=== PATIENT | female | born 1980 | race Caucasian/White ===

== ENCOUNTER 2023-12-18 08:45 | Outpatient (AMB) | payer BC, SELFPAY ==
--- NOTE | 2023-12-18 08:49 | MHC.PC.OV ---
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 Discussing today if she should go back on cholesterol medication. 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 She is transferring from [facility]. No notes available today. CV: Blood pressure today in the office is 98/60. She denies any episodes of feeling dizzy. Prior to leaving [facility] had increased her lisinopril from 10 mg to 20 she states that over the last few months she has significantly changed her diet. She states that she did a cleanse in his now eating very healthy and non processed foods. She states that she is also exercising and walking twice a day. Her is as motivated as she is and she states together they are both slowly losing weight. Denies any chest pain, shortness on breath. Sleep study is scheduled next month. Breast: March 02 mammo is scheduled for the repeat mammo. Left breast mammogram and u/s was abnormal nodular density in Jul 2023. Following with breast center [facility]: follows with Dr. Oscar paez's group. Starting pelvic floor PT this summer. Sees Dr. Davis routinely. 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 1. Little interest or pleasure in doing things: not at all 2. Feeling down, depressed, or hopeless: not at all 3. Trouble falling or staying asleep, or sleeping too much: not at all 4. Feeling tired or having little energy: several days 5. Poor appetite or overeating: not at all 6. Feeling bad about yourself - or that you are a failure or have let yourself or your family down: not at all 7. Trouble concentrating on things, such as reading the newspaper or watching television: not at all 8. Moving or speaking so slowly that other people could have noticed. Or the opposite - being so fidgety or restless that you have been moving around a lot more than usual: not at all 9. Thoughts that you would be better off or of hurting yourself in some way: not at all Total score: 1 Depression Screening Interpretation: Negative Depression Screening Done: Yes 05282 - PHQ-9 Billing: Yes Source: Developed by Drs. Leroy Unger, Briana Cope, Alberto Gonzalez and colleagues, with an educational hiram from [employer]. Thrive Questionnaire I am a: Patient What is your living situation today?: I have a steady place to live Within the past 12 months, did the food you bought not last and you didn't have the money to get more?: Never true Within the past 12 months, did you worry whether your food would run out before you got money to buy more?: Never true Do you have trouble paying for medicines?: No Do you have trouble getting transportation to medical appointments?: No Do you have trouble paying your heating and electricity bill?: No Do you have trouble taking care of your child, family member or friend?: No Do you have trouble with day-to-day activities such as bathing, preparing meals, shopping, managing finances, etc.?: No Are you currently unemployed and looking for a job?: No Are you interested in more education?: No Please select the resources that you would like help with: None Currently or been in a relationship where the following occur: no concerns reported THRIVE Score: 0 AUDIT C Alcohol Use Questionnaire (AUDIT-C) 1. How often do you have a drink containing alcohol?: 2-3 times a week 2. How many drinks containing alcohol do you have on a typical day when you are drinking?: 1 or 2 3. How often do you have six or more drinks on one occasion?: Monthly Total Score: 5 Score Reviewed/Action Taken: Yes JAMIE-7 AMB Questionnaire JAMIE-7 Feeling nervous, anxious, or on edge: 0 = Not at all Not being able to stop or control worryin = Not at all Worrying too much about different things: 0 = Not at all Trouble relaxin = Not at all Being so restless that it is hard to sit still: 0 = Not at all Becoming easily annoyed or irritable: 0 = Not at all Feeling afraid as if something awful might happen: 0 = Not at all Total JAMIE-7 score (0-4 normal; 5-9 mild; 10-14 moderate; 15-21 severe): 0 Source: Developed by Drs. Leroy Unger, Briana Cope, Alberto Gonzalez and colleagues, with an educational hiram from [employer]. JAMIE-7 Assessment Billing JAMIE-7 Assessment Tool: JAMIE-7 Assessment 39206 Physical exam (Primary Care) Vital Signs: Last Vital Signs Temp 98.2 F 12/18/23 08:55 Pulse 87 12/18/23 08:55 Resp 14 12/18/23 08:55 BP 98/78 12/18/23 08:55 Pulse Ox 99 12/18/23 08:55 Oxygen Delivery Method Room Air 12/18/23 08:55 BMI result Body Mass Index 29.0 Tobacco/Smoking Status: Tobacco use Status Tobacco use date assessed 12/18/23 12/18/23 08:58 Patient Tobacco Use Status Never used Tobacco 12/18/23 08:58 e-Cigarette/Vaping Use Never Used 12/18/23 08:58 Depression Screening Interpretation: Negative Currently or been in a relationship where the following occur: no concerns reported Const Orientation/consciousness: patient oriented x3 HENMT Ears: hearing grossly normal bilaterally Neck Thyroid: Thyroid normal Lymphatic: no lymphadenopathy noted Resp Auscultation: clear to auscultation bilaterally Cardio Rate: regular rate Rhythm: regular rhythm Heart sounds: S1 normal heart sound present and S2 normal heart sound present GI Inspection: Yes normal to inspection Palpation (GI): Soft to palpation and Other GI palpation findings present (nontender, no cva tenderness) Auscultation: normoactive bowel sounds Rectal Exam - Female: deferred Skin General skin exam: no rashes or lesions noted Neuro General: patient oriented x3, gait normal and no focal motor deficits Assessment and Plan Assessment & Plan (1) Hypertension: Code(s): I10 - Essential (primary) hypertension Qualifiers: Hypertension type: primary hypertension Qualified Code(s): I10 - Essential (primary) hypertension Plan: We will reduce lisinopril to 10 mg. She will monitor her blood pressure at home. I will have her follow up in 6 months for a CPE. Sooner if needed. We will complete labs prior to appointment. (2) Dyslipidemia: Code(s): E78.5 - Hyperlipidemia, unspecified Plan: Last total cholesterol was 199, triglycerides 108, HDL 41, LDL 134. We will repeat lipids in 6 months. Plan Patient understands and agrees with the plan. Orders: Orders Complete Blood Count Auto Diff Today E78.5 - Hyperlipidemia, unspecified, I10 - Essential (primary) hypertension Lipid Panel Today E78.5 - Hyperlipidemia, unspecified, I10 - Essential (primary) hypertension TSH reflex Free T4 Today E78.5 - Hyperlipidemia, unspecified, I10 - Essential (primary) hypertension Comprehensive Marine. Panel Fast Today E78.5 - Hyperlipidemia, unspecified, I10 - Essential (primary) hypertension Medications: New lisinopril 10 mg PO DAILY 90 tabs 3RF Coding Level of Care Code Est Pt Level 4 (45952) Complex EM visit Add On G2211 Diagnoses Primary hypertension I10 Hypertension type: primary hypertension Dyslipidemia E78.5 Additional Codes JAMIE-7 Assessment Billing - JAMIE-7 Assessment Tool: JAMIE-7 Assessment 44404 ([id number])
[2023-12-18 08:55] VITALS: BP 98/78; PULSE 87; RESP 14; TEMP 36.8; O2SAT 99; BMI 29.0
== END 2023-12-18 09:27 | disposition home or self-care (01) ==
PROVIDERS: PCP Physician Assistant; Visit Provider Physician Assistant
DX: I10 Essential (primary) hypertension (principal); E78.5 Hyperlipidemia, unspecified
CPT/HCPCS: 99214; G2211

== ENCOUNTER 2024-06-10 07:30 | Outpatient (REF) | payer BC, SELFPAY ==
[2024-06-10 11:10] LABS: MANUAL DIFF FLAG NO
[2024-06-10 11:16] LABS: Basophils Percent Auto 0.6 % (0-2); Eosinophils Absolute Auto 0.2 X10*3/uL (0.0-0.4); Eosinophils Percent Auto 2.5 % (0-4); Hematocrit 44.7 % (37.0-47.0); Hemoglobin 14.7 g/dl (12.0-16.0); Imm Gran Abs Auto 0.02 X10*3/uL (0.00-0.03); Imm Gran Pct Auto 0.3 % (0.0-0.4); Lymphocytes Absolute Auto 1.7 X10*3/uL (1.2-4.9); Mean Corpuscular HGB Conc 32.9 g/dl (31.0-35.0); Mean Corpuscular Hemoglobin 29.9 pg (27.0-33.0); Mean Corpuscular Volume 90.9 fL (80.0-98.0); Mean Platelet Volume 9.4 fL (9.4-12.3); Monocytes Absolute Auto 0.4 X10*3/uL (0.1-1.2); Monocytes Percent Auto 5.8 % (2-11); Neutrophils Absolute Auto 4.3 x10*3/uL (2.0-8.3); Neutrophils Percent Auto 64.8 % (45-73); Platelet Count 366 X10*3/uL (160-400); Red Blood Count 4.92 X10*6/uL (4.20-5.50); White Blood Count 6.7 X10*3/uL (4.8-10.8)
[2024-06-10 11:36] LABS: Alanine Aminotransferase 22 U/L (0-31); Albumin Level 4.1 g/dL (3.5-5.0); Alkaline Phosphatase 64 U/L (39-117); Anion Gap 10 (12-20); Aspartate Amino Transferase 22 U/L (5-31); Bilirubin Total 0.7 mg/dL (0.0-1.0); Blood Urea Nitrogen 10 mg/dL (9-16); Calcium 9.8 mg/dL (8.4-10.2); Carbon Dioxide 28 mmol/L (22-29); Chloride 105 mmol/L (96-108); Cholesterol 208 mg/dL (<200); Estimated Glomerular Filt Rate > 60; Glucose Fasting 94 mg/dL (60-99); HDL Cholesterol 56 mg/dL (>40); LDL Cholesterol Calculated 133 mg/dL (<100); Potassium 4.2 mmol/L (3.3-5.1); Sodium 139 mmol/L (135-145); Total Protein 7.3 g/dL (6.5-8.0); Triglycerides 96 mg/dL (<150)
[2024-06-10 11:57] LABS: TSH reflex Free T4 3.34 uIU/mL (0.32-4.0)
== END 2024-06-10 07:31 | disposition home or self-care (01) ==
LOC: HO.WFDLDS 07:30
PROVIDERS: Visit Provider Physician Assistant
DX: I10 Essential (primary) hypertension (principal); E78.5 Hyperlipidemia, unspecified
CPT/HCPCS: 36415; 80053; 80061; 84443; 85025

== ENCOUNTER 2024-06-16 07:57 | Outpatient (AMB) | payer BC, SELFPAY ==
--- NOTE | 2024-06-16 08:11 | MHC.PC.OV ---
Vital Signs 06/16/24 08:12 Height 5 ft 4 in Weight 174 lb 4 oz BMI 29.9 BP 116/80 Blood Pressure Location Lt brachial Position Sitting Pulse 78 Pulse Source Pulse Oximeter Pulse Oximetry (%) 99 Oxygen Delivery Method Room Air Intake Visit Reasons: physical Intake Note: Physical Allergies erythromycin base Allergy (Mild, Verified 06/16/24 08:11) Vomiting Medication List - Last Reconciled 06/16/24 by Jodi Bruce PA-C lisinopril 10 mg PO DAILY Tobacco use date assessed: 12/18/23 Dental Screening Dental Screen Date: 12/18/23 HPI physical HPI Details Patient is a 43-year-old female who presents today for a physical exam. She has no acute concerns today. CV: Blood pressure today in the office is 116/80. Checks blood pressure at home and it is about the same. She is on lisinopril 10 mg. No chest pain or shortness on breath. Breast: March 02 mammo is scheduled for the repeat mammo. Left breast mammogram and u/s was abnormal nodular density in Jul 2023. Following with breast center [employer]: follows with Dr. Oscar paez's group. Starting pelvic floor PT this summer. Sees Dr. Davis routinely. States that she is having a procedure next week. [facility] Medical History (Updated 06/16/24 @ 08:19 by Brissa Valdez CMA) H/O mammogram Dyslipidemia Hypertension Surgical History (Updated 06/16/24 @ 08:19 by Brissa Valdez CMA) History of knee surgery History of carpal tunnel release Hx of tonsillectomy Family History (Updated 06/16/24 @ 08:20 by Brissa Valdez CMA) Father Polycythemia Brother Asthma Thyroid cancer Social History (Updated 06/16/24 @ 08:20 by Brissa Valdez CMA) Housing: House Alcohol intake: current Patient Tobacco Use Status: Never used Tobacco e-Cigarette/Vaping Use: Never Used Second Hand Smoke Exposure: Yes (past) service: No Current occupational status: employed Current occupation: [employer] Current occupational exposures/hazards: No Cognitive needs: No Hearing needs: No Vision needs: Yes (reading glasses) Questionnaire PHQ-9 Over the last 2 weeks, how often have you been bothered by any of the following problems? 1. Little interest or pleasure in doing things: not at all 2. Feeling down, depressed, or hopeless: not at all 3. Trouble falling or staying asleep, or sleeping too much: not at all 4. Feeling tired or having little energy: not at all 5. Poor appetite or overeating: not at all 6. Feeling bad about yourself - or that you are a failure or have let yourself or your family down: not at all 7. Trouble concentrating on things, such as reading the newspaper or watching television: not at all 8. Moving or speaking so slowly that other people could have noticed. Or the opposite - being so fidgety or restless that you have been moving around a lot more than usual: not at all 9. Thoughts that you would be better off or of hurting yourself in some way: not at all Total score: 0 Depression Screening Interpretation: Negative Depression Screening Done: Yes 70620 - PHQ-9 Billing: Yes Source: Developed by Drs. Leroy Unger, Briana Cope, Alberto Gonzalez and colleagues, with an educational hiram from [employer]. Thrive Questionnaire Date Thrive assessed: 06/16/24 I am a: Patient What is your living situation today?: I have a steady place to live Within the past 12 months, did the food you bought not last and you didn't have the money to get more?: Never true Within the past 12 months, did you worry whether your food would run out before you got money to buy more?: Never true Do you have trouble paying for medicines?: No Do you have trouble getting transportation to medical appointments?: No Do you have trouble paying your heating and electricity bill?: No Do you have trouble taking care of your child, family member or friend?: No Do you have trouble with day-to-day activities such as bathing, preparing meals, shopping, managing finances, etc.?: No Are you currently unemployed and looking for a job?: No Are you interested in more education?: No Please select the resources that you would like help with: None Currently or been in a relationship where the following occur: No concerns reported THRIVE Score: 0 AUDIT C Alcohol Use Questionnaire (AUDIT-C) 1. How often do you have a drink containing alcohol?: 2-4 times a month 2. How many drinks containing alcohol do you have on a typical day when you are drinking?: 1 or 2 3. How often do you have six or more drinks on one occasion?: Never Total Score: 2 Score Reviewed/Action Taken: Yes JAMIE-7 AMB Questionnaire JAMIE-7 Date JAMIE - 7 assessed: 06/16/24 Feeling nervous, anxious, or on edge: 0 = Not at all Not being able to stop or control worryin = Not at all Worrying too much about different things: 0 = Not at all Trouble relaxin = Not at all Being so restless that it is hard to sit still: 0 = Not at all Becoming easily annoyed or irritable: 0 = Not at all Feeling afraid as if something awful might happen: 0 = Not at all Total JAMIE-7 score (0-4 normal; 5-9 mild; 10-14 moderate; 15-21 severe): 0 Source: Developed by Drs. Leroy Unger, Briana Cope, Ablerto Gonzalez and colleagues, with an educational hiram from [employer]. JAMIE-7 Assessment Billing JAMIE-7 Assessment Tool: JAMIE-7 Assessment 31585 Physical exam (Primary Care) Vital Signs: Last Vital Signs Pulse 78 06/16/24 08:12 BP 116/80 06/16/24 08:12 Pulse Ox 99 06/16/24 08:12 Oxygen Delivery Method Room Air 06/16/24 08:12 BMI result Body Mass Index 29.9 Tobacco/Smoking Status: Tobacco use Status Tobacco use date assessed 12/18/23 06/16/24 08:17 Patient Tobacco Use Status Never used Tobacco 06/16/24 08:20 e-Cigarette/Vaping Use Never Used 06/16/24 08:20 PHQ-9: PHQ-9 Score PHQ-9: Total score 0 06/16/24 08:17 Depression Screening Interpretation: Negative Thrive Assessment: Date of Thrive Assessment Date Thrive assessed 06/16/24 06/16/24 08:17 Currently or been in a relationship where the following occur: No concerns reported Const Orientation/consciousness: patient oriented x3 HENMT Ears: hearing grossly normal bilaterally and TM's normal bilaterally General nose exam: No nasal polyps present Face and sinus: Yes sinuses nontender Mouth: Normal oral and palatal mucosa present Eyes Pupils: Equal, round and reactive pupils present EOM: EOMs intact bilaterally Neck Neck: Yes full ROM and Yes no lymphadenopathy Thyroid: Thyroid normal Chest Chest palpation & inspection: normal inspection of the chest Resp Auscultation: clear to auscultation bilaterally Cardio Rate: regular rate Rhythm: regular rhythm Heart sounds: S1 normal heart sound present and S2 normal heart sound present Peripheral pulses: Peripheral pulses 2+ throughout GI Other: Soft, nontender Auscultation: normal bowel sounds Rectal Exam - Female: deferred General: Yes no CVA tenderness Back/Spine/Pelvis Other: Nontender Back: no CVA tenderness Skin General skin exam: no rashes or lesions noted Neuro General: patient oriented x3, gait normal, CN's II-XI intact bilaterally and deep tendon reflexes 2+ bilaterally Cranial nerves: Yes Equal, round and reactive pupils present Motor exam (neuro): 5/5 motor strength present throughout Sensory Exam: double simultaneous stimulation for sensation normal Coordination: [id number] test normal and Romberg test negative Extrem General: Yes normal to inspection and Yes full ROM Psych Affect: normal affect Attitude: cooperative Thought process: Normal thought process present Thought content: Normal thought content present Insight: Good insight present (Psych) Judgement: Good judgement present (Psych) Results Reviewed Results Reviewed: Laboratory Tests 06/10/24 07:32 WBC 6.7 RBC 4.92 Hgb 14.7 Hct 44.7 Plt Count 366 Sodium 139 Potassium 4.2 Chloride 105 Carbon Dioxide 28 Anion Gap 10 L BUN 10 Creatinine 0.74 Estimated GFR > 60 Fasting Glucose 94 Calcium 9.8 Total Bilirubin 0.7 AST 22 ALT 22 Alkaline Phosphatase 64 Total Protein 7.3 Albumin 4.1 Triglycerides 96 Cholesterol 208 H LDL Cholesterol, Calc 133 H HDL Cholesterol 56 TSH 3.34 Coding Level of Care Code Est Pt Prev Care 40-64y(06829) Diagnoses Routine general medical examination at a health care facility Z00.00 Primary hypertension I10 Hypertension type: primary hypertension Additional Codes JAMIE-7 Assessment Billing - JAMIE-7 Assessment Tool: JAMIE-7 Assessment 72112 ([id number]) PHQ-9 - 14055 - PHQ-9 Billing: Yes ([id number]) Assessment & Plan Assessment & Plan (1) Routine general medical examination at a health care facility: Code(s): Z00.00 - Encounter for general adult medical examination without abnormal findings Plan: Labs reviewed. Health maintenance reviewed. (2) Hypertension: Code(s): I10 - Essential (primary) hypertension Category: Medical Qualifiers: Hypertension type: primary hypertension Qualified Code(s): I10 - Essential (primary) hypertension Plan: WNL. Continue current regimen Plan Follow up in 6 months. Sooner if needed. Derm referral ordered Orders: Referrals Dermatology Referral Z12.83 - Encounter for screening for malignant neoplasm of skin
[2024-06-16 08:12] VITALS: BP 116/80; PULSE 78; O2SAT 99; BMI 29.9
== END 2024-06-16 08:39 | disposition home or self-care (01) ==
LOC: HO.HMCFM 07:57
PROVIDERS: PCP Physician Assistant; Visit Provider Physician Assistant
DX: Z00.00 Encounter for general adult medical examination without abnormal findings (principal); I10 Essential (primary) hypertension

== ENCOUNTER → 2024-06-16 07:57 | Outpatient (BNVA) | payer BC, SELFPAY | PROVIDERS: PCP Physician Assistant; Visit Provider Physician Assistant | DX: Z00.00 Encounter for general adult medical examination without abnormal findings (principal); I10 Essential (primary) hypertension | CPT/HCPCS: 96127 ==